=== PATIENT | female | born 1970 | race Caucasian/White ===

== ENCOUNTER → 2023-01-21 | Outpatient (CLI) | payer MEDICARE, SELFPAY ==
[2023-01-21 09:22] LABS: EXAGEN MAILED SPECIMEN
[2023-01-21 11:06] LABS: Erythrocyte Sedimentation Rate 38 mm/hr (0-30)
[2023-01-21 11:08] LABS: International Normalized Ratio 1.2; Partial Thromboplast Time 37.2 Seconds (24.1-36.2); Prothrombin Time (Protime)PT. 14.8 SECONDS (11.7-14.9)
[2023-01-21 11:09] LABS: Color, Urine Straw (Yellow); Glucose, Dipstick Normal (Normal); Ketone-Dipstick Negative (Negative); Leukocyte Esterase-Dipstick Negative /ul (Negative); Nitrite-Dipstick Negative (Negative); Occult Blood-Urine Negative /ul (Negative); Protein-Dipstick Negative (Negative); Urine Bilirubin Dipstick Negative (Negative); Urine Clarity Clear (Clear); Urine Urobilinogen Normal (Normal); Urine pH 6.5 (5.0 - 8.0)
[2023-01-21 11:10] LABS: Absolute Lymphocyte Count 0.71 X10^3/uL (0.83-4.51); Absolute Neutrophil Count 1.1 X10^3/uL (2.0-7.7); Basophil# 0.02 X10^3/uL; Eosinophil# 0.03 X10^3/uL; Eosinophils% 1.5 % (0-5); Hematocrit 34.7 % (37-47); Hemoglobin 10.5 g/dL (12.0-15.0); Lymphocyte # 0.71 X10^3/ul (0.83-4.51); Mean Corp Hgb Conc 30.3 g/dL (32-36); Mean Corpuscular Hgb 27.1 pg (27.0-32.0); Mean Corpuscular Volume 89.4 fL (81-99); Mean Platelet Vol. 10.6 fl (6.2-12.0); Monocyte# 0.13 X10^3/uL; Monocyte% 6.4 % (0-10); NRBC Flagged by Analyzer 0 % (0-5); Neutrophil # 1.13 X10^3/uL (2.7-7.7); Neutrophil % 55.6 % (47-70); POSITIVE COUNT YES; Platelet Count 57 K/mm3 (150-450); RBC Distribution Width CV 15.8 % (11.6-14.6); RBC Distribution Width SD 50.8 fl (35.1-43.9); Red Blood Count 3.88 M/mm3 (4.2-5.4)
[2023-01-21 11:12] LABS: Differential Indicated SCAN CRITERIA MET
[2023-01-21 11:22] LABS: Creatinine, Urine (random) < 13.00 mg/dL (NO RANGE EST.); Protein, Urine (Random) < 6.0 mg/dL (<11.9)
[2023-01-21 11:48] LABS: Hepatitis B Surface Antibody Non-Reactive
[2023-01-21 11:50] LABS: AST(SGOT) 26 U/L (15-37); Alanine Aminotransfer ALT/SGPT 24 U/L (13-56); Albumin, Serum 3.6 g/dL (3.2-5.0); Alkaline Phosphatase 84 U/L (45-117); Anion Gap 5 (5-15); BUN 8 mg/dL (7-18); BUN/Creat Ratio 12.3 RATIO (10-20); Calcium,Total 9.2 mg/dL (8.5-10.1); Chloride 102 mmol/L (98-107); Creatinine, Serum 0.65 mg/dL (0.55-1.02); EST Glomerular Filtration Rate 102 mL/min (>60); Est Glom Filt Rate - Afr Amer 124 mL/min (>60); Globulin 3.7 g/dL (2.2-4.2); Glucose 163 mg/dL (74-106); Potassium 3.7 mmol/L (3.5-5.1); Protein, Total 7.3 g/dL (6.4-8.2); Sodium Level 142 mmol/L (136-145)
[2023-01-21 11:53] LABS: Anisocytosis 1+; Platelet Estimate MKD DEC (ADEQ)
[2023-01-22 13:08] LABS: Thrombin Time 15.5 sec (0.0-23.0)
[2023-01-23 04:07] LABS: Dilute Prothrombin Time (dPT) 46.7 sec (0.0-47.6); Dilute Russell Viper Venom 39.7 sec (0.0-47.0); Hexagonal Phase Phospholipid 5 sec (0-11); Hexagonal Phase Phospholipid 2 5 sec (0-11); Interpretation Comment: (.); PTT-LA 43.6 sec (0.0-43.5); PTT-LA Mix 40.8 sec (0.0-40.5); Thrombin Time 15.8 sec (0.0-23.0); dPT Confirm Ratio 1.03 Ratio (0.00-1.34)
== END | disposition home or self-care (01) ==
PROVIDERS: PCP Physician Assistant Medical; Referring Provider Internal Medicine Rheumatology; Visit Provider Internal Medicine Rheumatology
DX: L40.59 Other psoriatic arthropathy (principal); R76.8 Other specified abnormal immunological findings in serum
CPT/HCPCS: 36415; 80053; 81002; 82570; 84156; 85025; 85598; 85610; 85652; 85670; 85730; 86140; 86706